=== PATIENT | female | born 1950 | race Caucasian/White ===

== ENCOUNTER → 2016-11-09 | Outpatient (CLI) | payer MEDICARE, OTHER ==
--- NOTE | 2016-11-10 15:58 | MAM ---
EXAM DESCRIPTION: MAMMO BREAST SCREENING BILATERAL CAD, images were reviewed with CAD technology, R2 computer-aided detection. CLINICAL HISTORY: [facility]. COMPARISON: 2013. FINDINGS: Routine views are obtained. Nodular parenchymal pattern with increased mammographic density. Stable nodularity. No dominant mass, architectural distortion or clustered microcalcification.. IMPRESSION: Benign exam. BIRAD CATEGORY: 2 BENIGN RECOMMENDATIONS: FOLLOW-UP: Routine screening mammogram in one year. According to the [employer], yearly mammograms are recommended starting at age 40 and continuing as long as a woman is in good health. Any breast change noted on a breast self-exam should be reported promptly to the patient's healthcare provider. Breast MRI is recommended for women with an approximately 20-25% or greater lifetime risk of breast cancer, including women with a strong family history of breast or ovarian cancer and women who have been treated for Hodgkin's disease. Electronically signed by: Chika St 11/10/2016 15:57
== END ==
LOC: MAMMO 13:20
PROVIDERS: ATTEND Family Medicine
DX: Z12.31 Encounter for screening mammogram for malignant neoplasm of breast (principal)
CPT/HCPCS: 77052; G0202

== ENCOUNTER → 2017-11-29 | Outpatient (CLI) | payer MEDICARE, OTHER ==
--- NOTE | 2017-12-05 17:13 | MAM ---
EXAM DESCRIPTION: 3D Screening BILATERAL : Digital Mammography. CLINICAL HISTORY: 67 years Female SCREENING . No complaints. Remote family history of breast cancer. Menstrual status is unknown. No HRT. COMPARISON: 2-D digital screening bilateral study 11/09/2016 and 11/04/2013.. No prior reports available. Reports from prior examinations also reviewed. Report from prior examination also reviewed. TECHNIQUE: Bilateral CC and MLO projection full-field images, with [employer] 3-D tomosynthesis digital mammographic technique. Also bilateral synthesized CC/ MLO full-field images. Also with [employer], CAD not utilized. 2-D digital full-field images, MLO and CC projections bilaterally, non-displaced, with CAD. FINDINGS: The breast parenchymal density pattern is: Extremely dense breast tissue, which lowers the sensitivity of mammography. No skin thickening or nipple retraction . Bilateral solitary microcalcifications. Left axillary lymph nodes. Larger nodular densities in the upper outer quadrant of the left breast are stable since the prior exams. No focal, stellate mass or density, focal asymmetry , and no suspicious microcalcifications bilaterally Stable mammograms compared to prior studies, taking into account differences in mammographic technique IMPRESSION: BI-RADS CATEGORY: 2 - BENIGN FINDINGS. FOLLOW UP: Routine digital bilateral screening, one year interval from November 2017. Written communication explaining the IMPRESSION and follow-up, will be mailed to the patient and referring health care provider. According to the [employer], yearly mammograms are recommended starting at age 40 and continuing as long as a woman is in good health. Any breast change noted on a breast self-exam should be reported promptly to the patient's healthcare provider. Breast MRI is recommended for women with an approximately 20-25% or greater lifetime risk of breast cancer, including women with a strong family history of breast or ovarian cancer and women who have been treated for Hodgkin's disease. A negative mammographic report should not delay tissue diagnosis in patients with significant clinical history or physical findings. Extremely dense breast tissue limits the sensitivity of digital mammography. Electronically signed by: Rogerio Huang MD 12/05/2017 5:12 PM [facility]
== END ==
LOC: MAMMO 10:00
PROVIDERS: ATTEND Family Medicine
DX: Z12.31 Encounter for screening mammogram for malignant neoplasm of breast (principal)

== ENCOUNTER → 2018-11-08 | Outpatient (CLI) | payer MEDICARE, OTHER ==
--- NOTE | 2018-11-08 13:43 | MRI ---
EXAM DESCRIPTION: Knee,Right: MRI. CLINICAL HISTORY: 68 years Female MENISCUS TEAR COMPARISON: None. TECHNIQUE: Multiplanar, high-field MRI, multiple sequences, without contrast: Right knee. FINDINGS: Subchondral edema in the mid inferior convexity of the lateral condyle with a dedicated in the overlying cartilage. Subchondral edema on the opposing surface of the lateral tibial plateau. Diffuse chondromalacia. Abnormal signal in the posterior horn of the lateral meniscus extending to the central root insertion and also to the collateral surface. Diffuse abnormal signal in the body of the meniscus. Normal signal in the anterior horn which is outwardly subluxed from the joint space which is moderately reduced. Marginal spurs also present. Effusion in the medial compartment. Minimal chondromalacia but no subchondral edema. Degenerative-type signal in the medial meniscus. Multiple cysts or large septated cyst posterior medial soft tissues around the medial gastrocnemius muscle and tendon, and the semitendinosus. Medial collateral ligament is intact. Intermediate signal in the fibular collateral ligament and popliteus tendon at the insertion on the lateral condyle. Intermediate signal in the anterior cruciate ligament with the ligament taut in extension; normal signal in the posterior cruciate ligament. Intercruciate space effusion. Suprapatellar effusion. Mild chondromalacia in the patellofemoral cartilage with inferior marginal spurs. No osteochondral lesions. Patellar soft tissue restraints are intact. Intermediate signal in the distal quadriceps tendon. Intimal edema anterior to the patellar tendon. IMPRESSION: 1. Moderate arthrosis in the lateral compartment and advanced joint space loss. Grade 4 osteochondrosis lateral femoral condyle with 2 mm defect in the cartilage. Diffuse tear of the posterior horn of the lateral meniscus, collateral and to the central root and degeneration of the body of the meniscus. Anterior cruciate ligament with mild sprain, no tear. Posteromedial Bakers cysts. 2. Mild strain of the popliteus tendon and mild sprain of the fibular collateral ligament of the lateral collateral complex. Medial collateral ligament and posterior cruciate ligaments are intact. Intra-cruciate space effusion. 3. Mild arthrosis of the patellofemoral compartment with suprapatellar effusion. Electronically signed by: Rogerio Huang MD 11/08/2018 1:42 PM [facility]
== END ==
LOC: MRI 13:00
PROVIDERS: ATTEND Orthopaedic Surgery
DX: S83.271D Complex tear of lateral meniscus, current injury, right knee, subsequent encounter (principal); M25.461 Effusion, right knee; M17.11 Unilateral primary osteoarthritis, right knee

== ENCOUNTER → 2018-12-01 | Outpatient (CLI) | payer MEDICARE, OTHER | LOC: GMAE 10:42 | PROVIDERS: ATTEND Family Medicine | DX: I10 Essential (primary) hypertension (principal) ==

== ENCOUNTER → 2018-12-27 | Outpatient (CLI) | payer MEDICARE, OTHER | LOC: GMAE 10:43 | PROVIDERS: ATTEND Family Medicine | DX: Z51.81 Encounter for therapeutic drug level monitoring (principal) ==

== ENCOUNTER → 2019-06-13 | Outpatient (CLI) | payer MEDICARE, OTHER | LOC: GMAE | PROVIDERS: ATTEND Family Medicine | DX: M79.7 Fibromyalgia (principal) ==

== ENCOUNTER → 2019-08-09 | Outpatient (CLI) | payer MEDICARE, OTHER | LOC: GMAE 15:01 | PROVIDERS: ATTEND Family Medicine | DX: M13.0 Polyarthritis, unspecified (principal) ==

== ENCOUNTER → 2019-08-13 | Outpatient (CLI) | payer MEDICARE, OTHER ==
--- NOTE | 2019-08-13 14:41 | NM ---
EXAM DESCRIPTION: Bone Scan, 3Phase: Nuclear Medicine CLINICAL HISTORY: 68 years Female POLYARTHRITIS. Right TKA with pain. COMPARISON: Right knee radiographs 29 May 2019. Right femur and knee radiographs 07 August 2019. TECHNIQUE: Patient injected with 25.8 mCi of technetium 99M MDP IV. Immediate flow gamma camera images were obtained of the bilateral knees and adjacent femurs and tibia fibula from various planes. "Blood pool" images were then obtained of the same regions as previously, from various planes. Delayed gamma camera images from various planes bilateral knees were obtained 3 hr after injection. FINDINGS: Flow phase: photopenia corresponding to the femoral and tibial components of the right total knee arthroplasty. However there is focal increased activity in the vicinity of the anterior tibial component interface with bone best seen on the early anterior images. Decreased activity in the left knee more likely a result of decreased bone density and metabolism. "Blood pool" phase: (20 minutes after radiopharmaceutical administration) photopenia corresponding to the femoral component at the condyles medial and lateral. Slightly increased activity adjacent to the lateral femoral component and at the interface of the inferior tibial component and bone in the midline, similar location as flow phase abnormality. Delayed phase: Band like focus of increased activity in the distal shaft of the femur at the same level as thickened medial cortex which is visualized on the postoperative radiographs of the right knee in May. There may be minimal trabecular heterogeneity at this level on the recent right femoral radiographic study. Increased activity associated with the medial aspect of the tibial component of the total knee arthroplasty and also associated with the inferior midline interface between the tibial prosthesis and the bone. IMPRESSION: 1. Abnormalities on all 3 phases of the radionuclide bone imaging study consistent with loosening of the tibial component, in the midline at the interface with the bone, and possibly medial plateau. 2. Bandlike focus of increased activity in the distal right femoral shaft at the level of medial hypertrophic cortical bone. This is more suggestive of a stress fracture more than infiltrative lesion. Electronically signed by: Rogerio Huang MD 08/13/2019 2:39 PM CDT
== END ==
LOC: NM 08:00
PROVIDERS: ATTEND Family Medicine
DX: M13.0 Polyarthritis, unspecified (principal)
CPT/HCPCS: 78315; A9503

== ENCOUNTER → 2020-02-18 | Outpatient (CLI) | payer MEDICARE, OTHER | LOC: GMAE 11:30 | PROVIDERS: ATTEND Family Medicine | DX: I10 Essential (primary) hypertension (principal); E78.2 Mixed hyperlipidemia ==